=== PATIENT | male | born 1990 | race Caucasian/White ===

== ENCOUNTER 2017-02-26 00:44 | Emergency (ER) | payer OTHER ==
[~2017-02-26] VITALS: Ht 175.3 cm; Wt 83.9 kg
[2017-02-26 01:03] LABS: LYMPH # 0.3 K/mm3 (0.7-4.5); LYMPH % 2.5 % (10-50)
[2017-02-26 01:06] LABS: HEMOGLOBIN 18.1 g/dL (14.1-18.0)
--- OUTSIDE RECORDS SUMMARY | 2017-02-26 01:11 | External Medical Summary Rpt | CCD ---
Author Author [employer] Organization [employer] Address Unknown Phone Unavailable Purpose Continuity of Care Document - through 2016
--- OUTSIDE RECORDS SUMMARY | 2017-02-26 01:11 | External Medical Summary Rpt | CCD ---
Author Author , EMILY DIAZ Address Unknown Phone [email or web address] Purpose Continuity of Care Document - through 2016
--- OUTSIDE RECORDS SUMMARY | 2017-02-26 01:11 | External Medical Summary Rpt | CCD ---
Author Author , EMILY DIAZ Address Unknown Phone Purpose Continuity of Care Document - through 2016
--- OUTSIDE RECORDS SUMMARY | 2017-02-26 01:12 | External Medical Summary Rpt ---
Author Author EMILY Garcia, [employer] [employer] Organization [employer] Address Unknown Phone Unavailable
--- OUTSIDE RECORDS SUMMARY | 2017-02-26 01:12 | External Medical Summary Rpt | CCD ---
Demographics Preferred Language Kiswahili Marital Status Unknown Jain Affiliation Unknown Race Unknown Ethnic Group Unknown Author Author , EMILY DIAZ Address Unknown Phone Immunization Unable to retrieve immunization data due to connection failure with Immunization Registry. Please try again later.
--- OUTSIDE RECORDS SUMMARY | 2017-02-26 01:12 | External Medical Summary Rpt | CCD ---
Demographics Preferred Language Croatian Marital Status Unknown Gnosticism Affiliation Unknown Race Unknown Ethnic Group Unknown Author Author , EMILY DIAZ Address Unknown Phone Immunization Unable to retrieve immunization data due to connection failure with Immunization Registry. Please try again later.
[2017-02-26 01:54] LABS: NEUTROPHILS 72 % (42-76)
--- NOTE | 2017-02-26 02:12 | Emergency Room Report ---
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 N Clinical Suspician of Infection? N Mental Status: 1 - Regular (Normal Baseline) Sepsis Risk:Severe Sepsis RiskY Have you (or family members/close friends) recently traveled outside the [place]? N If Yes, where/when: Have you had exposure to infectious disease within the past month? N TB? Other? Specify: Source patient, RN notes reviewed, family, old records Exam Limitations no limitations Comment sudden onset of upper abd pain with vomiting and nonbldy diarrhea around 5 pm Cardiac Chest Pain Chest pain indicative of cardiac No Timing/Duration this evening Severity moderate ALLERGIES Coded Allergies: cephalexin (From KEFLEX) (I-RASH 02/26/17) Home Medications Reported Medications No Known Home Medications History Medical History General CAD? No Angina: No NV: No Hypertension? No Hyperlipidemia? No CHF? No DVT? No PE? No COPD? No Asthma? No Anemia? No GERD? No Gastric ulcers? No GI Bleed? No Hernia? No Thyroid Problems? No Hypothyroidism? No CVA? No Seizures? No Diabetes? No Renal Insuffiency? No End Stage Renal Disease? No UTI? No Stones? No BPH? No GB Disease: No Nephritic Syndrome? No Asplenia? No Hepatitis? No Sickle Cell Disease? No Migraines? No Cataracts? No Glaucoma? No MRSA? No HIV? No TB? No Anxiety? No Depression? No Cancer? No Immunization Hx DT/Tetanus UNKNOWN Surgical Hx Previous Surgery?N Social History Smoking Hx Smoker: Never Smoker Tobacco: No Packs/day < 1 Pack Alcohol Alcohol: Yes Drugs none Review of Systems All Other Systems Reviewed and Negative Constitutional denies fever Eyes denies drainage ENT denies: ear discharge, epistaxis. Respiratory denies cough, denies shortness of breath, denies wheezing Cardiovascular denies chest pain, denies palpitations, denies syncope Gastrointestinal see HPI, abdominal pain, diarrhea, nausea, vomiting Genitourinary denies: dysuria, frequency, hesitancy, hematuria. Musculoskeletal denies back pain, denies joint pain, denies neck pain Skin denies rash Psychiatric/Neurological denies headache, denies seizure Physical Exam Vital Signs Vital Signs Date Time Temp Pulse Resp B/P Pulse O2 O2 Flow FiO2 Ox Delivery Rate 02/26 0239 97 14 104/51 99 02/26 0051 98.3 120 24 111/78 99 - WBC >12,000 or <4,000 or 10% bands? 2 or more SIRS Criteria Met? B/P:104/51 MAP:89 Creatinine >2.0? UA output<0.5ml/kg/hr for 2 hrs? Platelet count >100,000? Lactate >2.0mmol/1? INR >1.2 or PTT > than 60 sec? Evidence of Organ Dysfunction? Provider documented clinical suspician of infection? N Sepsis Criteria Count: 2 Sepsis Risk: Severe Sepsis RiskY General Appearance no apparent distress Eye Exam - bilateral eye PERRL, bilateral eye EOMI Ear, Nose, Throat normal ENT inspection Neck supple Respiratory Status No: respiratory distress. Lung Sounds bilateral: lungs clear. 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 No Results/Orders Laboratory Tests 02/26/178: Sodium 136, Potassium 4.4, Chloride 101, Carbon Dioxide 24, BUN 23 H, Creatinine 1.7 H, Estimated Creat Clear 77, Estimated GFR (MDRD) 48, Glucose 158 H, Calcium 9.6, Total Bilirubin 1.2 H, AST 24, ALT 45, Alkaline Phosphatase 70, Total Protein 7.8, Albumin 5.0, Globulin 2.8, Albumin/Globulin Ratio 1.8, Amylase 35, Lipase 79, WBC 11.7 H, RBC 6.15, Hgb 18.1 H, Hct 52.0, MCV 84.6, RDW 12.2, Plt Count 241, MPV 7.7, Gran % 91.0 H, Gran # 10.6 H, Total Counted 100, Lymphocytes % 2.5 L, Monocytes % 4.3, Eosinophils % 2.0, Basophils % 0.2, Neutrophils 72, Band Neutrophils 15 H, Lymphocytes (Manual) 12 , Lymphocytes # 0.3 L, Monocytes (Manual) 1 L, Monocytes # 0.5, Eosinophils # 0.2, Basophils # 0.0, RBC/WBC/PLT Morphology NORMAL, Platelet Estimate NORMAL, PUBS MCHC 34.7, MCH 29.4 Current Medication Orders Sig/Valery Start time Last Medication Dose Route Stop Time Status Admin Sodium Chloride 25 ML .STK-MED ONE 02/26 226 DC IV Promethazine HCl 0 .STK-MED ONE 02/26 219 DC .ROUTE Sodium Chloride 1,000 ML .STK-MED ONE 02/26 218 DC IV Famotidine 20 MG ONCE ONE 02/26 215 DC 02/26 IV 02/26 021 0222 Promethazine HCl 12.5 MG ONCE ONE 02/26 215 DC 02/26 IV 02/26 021 0223 Sodium Chloride 8 ML ONCE ONE 02/26 215 DC IV 02/26 0216 Sodium Chloride 25 ML ONCE ONE 02/26 215 DC 02/26 IV 02/26 022 0228 Famotidine 0 .STK-MED ONE 02/26 214 DC IV Ondansetron HCl 4 MG ONCE ONE 02/26 100 DC 02/26 IV 02/26 010 0059 Ondansetron HCl 0 .STK-MED ONE 02/26 100 DC .ROUTE Sodium Chloride 10 ML PRN PRN 02/26 010 AC IV 02/27 0057 Sodium Chloride 1,000 ML .Q1H1M 02/26 100 DC 02/26 IV 02/26 020 0059 Sodium Chloride 10 ML PRN PRN 02/26 010 AC IV 02/27 0058 Sodium Chloride 1,000 ML .STK-MED ONE 02/26 100 DC IV Orders Procedure Date/time Status IV SALINE LOCK 02/26 58 Active URINALYSIS/COMPLETE 02/26 58 Active LIPASE 02/26 58 Complete DIFFERENTIAL-WBC 02/26 58 Complete CBC WITH AUTO DIFF 02/26 58 Complete CHEM 12 PROFILE 02/26 58 Complete AMYLASE 02/26 58 Complete Departure Departure Time of Disposition 0245 Disposition DC Home or Self Care(routine) Clinical Impression Primary Impression: Gastroenteritis Secondary Impressions: Renal insufficiency Condition STABLE Referrals Moisés Barcenas MD (Family) Patient Instructions DI for Vomiting -- Adult Additional Instructions fluids and see pcp about renal function Discharge Counseling Counseled pt/family regarding diagnosis, test results, medications/RX, follow up needs Prescriptions Current Visit Scripts No Known Home Medications [place] [address]
[2017-02-26 03:06] VITALS: BP 105/53
== END 2017-02-26 03:07 | disposition home or self-care (01) ==
LOC: ER 00:44
PROVIDERS: Emergency Medicine
DX: K52.9 Noninfective gastroenteritis and colitis, unspecified (principal); N28.9 Disorder of kidney and ureter, unspecified; Z88.3 Allergy status to other anti-infective agents
CPT/HCPCS: J2405